=== PATIENT | male | born 1950 | race Caucasian/White ===

== ENCOUNTER → 2017-04-07 | Outpatient (CLI) | payer MEDICARE ==
[~2017-04-07] MED LIST: HYDR-3111 PO; HYDR-3583 PO; TEST1INJ3 IM; TYLE325T PO
[2017-04-07 10:21] LABS: AUTOMATED NEUTROPHIL # 3.5 TH/MM3 (1.8-7.7); BASOPHIL % 0.8 % (0.0-2.0); EOSINOPHIL # 0.1 TH/MM3 (0-0.4); HEMATOCRIT 45.9 % (39.0-51.0); HEMO FLAGS DIFF FINAL; LYMPH % 31.6 % (9.0-44.0); LYMPHOCYTE # 1.9 TH/MM3 (1.0-4.8); MEAN CELL VOLUME 89.3 FL (80.0-100.0); MEAN CORPUSCULAR HEMOGLOBIN 31.7 PG (27.0-34.0); MEAN CORPUSCULAR HGB CONC 35.4 % (32.0-36.0); MONO % 7.6 % (0.0-8.0); PLATELET COUNT 187 TH/MM3 (150-450); RED BLOOD COUNT 5.14 MIL/MM3 (4.50-5.90); RED CELL DISTRIBUTION WIDTH 12.6 % (11.6-17.2); WHITE BLOOD COUNT 6.1 TH/MM3 (4.0-11.0)
[2017-04-07 10:57] LABS: ANION GAP 8 MEQ/L (5-15); AST (GOT) 34 U/L (15-37); BICARBONATE 27.5 MEQ/L (21.0-32.0); BLOOD UREA NITROGEN 19 MG/DL (7-18); CHLORIDE 104 MEQ/L (98-107); GLOMERULAR FILTRATION RATE 86 ML/MIN (>89); GLUCOSE,FASTING 102 MG/DL (74-99); POTASSIUM 4.6 MEQ/L (3.5-5.1); SODIUM (NA) 139 MEQ/L (136-145)
[2017-04-07 10:58] LABS: ALT (GPT) 30 U/L (12-78)
[2017-04-07 11:00] LABS: ALKALINE PHOSPHATASE 81 U/L (45-117); TOTAL BILIRUBIN ADULT 0.6 MG/DL (0.2-1.0)
--- NOTE | 2017-04-07 11:32 | EKG ---
Date Performed: 04/07/2017 Time Performed: 10:06:50 PTAGE: 66 years EKG: NORMAL Sinus rhythm INFERIOR MYOCARDIAL INFARCTION, PROBABLY OLD LOW QRS VOLTAGE IN THE LIMB LEADS ABNORMAL ECG NO PREVIOUS TRACING DOCTOR: Ryland Portillo Interpretating Date/Time 04/07/2017 11:32:23
== END ==
LOC: CPRE 09:40
PROVIDERS: ATTEND Orthopaedic Surgery
DX: Z01.810 Encounter for preprocedural cardiovascular examination (principal); Z01.812 Encounter for preprocedural laboratory examination; M75.41 Impingement syndrome of right shoulder; M75.121 Complete rotator cuff tear or rupture of right shoulder, not specified as traumatic; R94.31 Abnormal electrocardiogram [ECG] [EKG]
CPT/HCPCS: 36415; 80053; 85025; 93005

== ENCOUNTER → 2017-04-30 | Day surgery (SDC) | payer MEDICARE ==
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
[~2017-04-30] VITALS: Ht 172.7 cm; Wt 102.1 kg
[~2017-04-30] MED LIST changes: +ACETAMINOPHEN/HYDROcodone 325 MG/5 MG TAB PO PRN; +BUPIVACAINE HCL PF 0.5% 30 ML VIAL ONE; +CHLORHEXIDINE GLUCONATE 2 % 1 PACK (2 CLOTHS) TOPICAL PRN; +DEXAMETHASONE SOD PHOS 4 MG/ML VIAL IV ONE; +DEXAMETHASONE SOD PHOS 4 MG/ML VIAL ONE; +DO NOT ADM ANY ANTICOAGULANT DRUGS PRN; +EPINEPHrine HCL (1:1000) 30 MG/30 ML VIAL ONE; +GLYCOPYRROLATE 1 MG/5 ML SYRINGE IV PUSH ONE; +LACTATED RINGER'S 1000 ML INJ 1,000 ML IV ONE; +LACTATED RINGER'S 1000 ML IV PRN; +LIDOCAINE HCL 1% PF 5 ML SYRINGE OTHER ONE; +METOPROLOL TARTRATE 25 MG TAB PO PRN; +MIDAZOLAM HCL 2 MG/2 ML VIAL IV ONE; +MORPHINE SULFATE 4 MG/ML INJ IV ONE; +MORPHINE SULFATE 4 MG/ML INJ IV PUSH PRN; +NEOSTIGMINE 3 MG/3 ML SYR IV ONE; +ONDANSETRON HCL 4 MG/2 ML VIAL IV PUSH ONE; +ONDANSETRON HCL 4 MG/2 ML VIAL IV PUSH PRN; +PHENYLEPH/NS 1000 MCG/10 ML SYR IV ONE; +POVIDONE IODINE 5% (ANTISEPSIS KIT) 4 APPLICATIONS EACH NARE PRN; +POVIDONE IODINE 7.5% SCRUB 118 ML BOTTLE TOPICAL SCH; +PROPOFOL 200 MG/20 ML AMP IV ONE; +ROCURONIUM INJ 50 MG/5 ML SYRINGE IV PUSH ONE; +SODIUM CHLOR 0.9% 1000 ML INJ 1,000 ML IV SCH; +SODIUM CHLORID 0.9% 500 ML IV PRN; +VANCOMYCIN 1500 MG/NS 500 ML (for 85-99 kg) IV SCH; +ceFAZolin 2 GM PREMIX 50 ML IV SCH; +ePHEDrine/NS 25 MG/5 ML SYR IV ONE
[2017-04-30 16:45] VITALS: BP 152/73; PULSE 92; RESP 18; TEMP 96.9; O2SAT 96
--- NOTE | 2017-04-30 21:36 | MP ---
cc: TRENTON PATEL DATE OF SURGERY: 04/30/2017 PREOPERATIVE DIAGNOSIS: 1. Full thickness rotator cuff tear, anterior portion of supinatus. 2. Biceps tendinopathy. 3. Partial tear, superior portion of subscapularis. POSTOPERATIVE DIAGNOSIS: 1. Full thickness rotator cuff tear, anterior portion of supinatus. 2. Biceps tendinopathy. 3. Partial tear, superior portion of subscapularis. OPERATIVE PROCEDURE 1. Arthroscopic surgery right shoulder consisting of the following: Debridement of the shoulder joint and biceps tenotomy. Acromioplasty. 2 Co-planing lateral and clavicle (modified Bettye procedure). 3. Open rotator cuff repair through a mini open technique. 4. Biceps tenodesis. SURGEON: Dr. Patel. ANESTHESIA: General. TECHNIQUE: After induction of anesthesia, great care was taken to position this patient in a lateral decubitus position. An axillary roll was placed, Charnley positioners were used to put him in a right lateral decubitus position, leaning towards the surgeon about 15-20 degrees. The left leg was padded underneath the leg crate. Both legs were properly cushioned and positioned. Head and neck properly positioned. The arm was then placed in traction with ten pound weight, using the Arthrex soft goods in the Accuflex positioner and about 30 degrees of abduction. Right shoulder girdle was then prepped with alcohol and ChloraPrep, draped in a routine fashion including Ioban drape around the arm. Bony prominences were marked. This man is very large in his upper body and it was difficult to palpate the bony prominences, but they were done and marked. A stab incision was made about 3 cm below and slightly posterior to the posterolateral aspect of the acromion and we were able to enter the joint with the first pass and inspect the joint. There was a lot of synovitis in the joint making visualization difficult. The subluxed biceps tendon also makes it difficult. There was a deep tear of the upper portion of the subscapularis but we were not planning to repair that. The biceps tendon had significant tendinopathy with inflammation at its attachment as well as superior labral tear as well as some vertical splitting of the tendon. Anterior portal established and using a shaver and basket forceps, the biceps tendon was released. Residual area of the superior labrum was trimmed. Joint was examined. The humeral head is satisfactory. Glenoid has some wear of the cartilage. The infraspinatus and teres minor are intact. There is a full-thickness rotator cuff tear at the anterior most portion of the supraspinatus. Once the joint surgery was completed a careful debridement of the joint was carried out. Once the joint surgery was completed, we went into the subacromial space through the same posterior portal. A mid lateral portal was established and instrumentation carried out from here. The patient has a tremendous amount of bursitis and care had to be taken to debride all this to visualize the rotator cuff tear. Acromioplasty was carried out all the way to the area of attachment to correct the coracoacromial ligament but we did not do any separate release of the ligament. AC joint was debrided. The undersurface of the lateral end of the clavicle was planed with a barrel bur. We then turned our attention to the rotator cuff. The cuff was delineated. The bone was debrided over the greater tuberosity where there was a big bump. The shoulder continued to swell and the visualization got more and more difficult even after we had put the anterior cannula in the subacromial space and a large plastic cannula in the mid lateral portal, indeed we were running out of room for the scope. With all these difficulties we decided to stop the arthroscopic procedure. The portals were closed with interrupted nylon sutures. Sterile towels were placed over it. Undraping was carried out and then the patient was placed in a beach chair position with folded blankets under his chest. Head and neck properly positioned and supported, lower legs placed on blankets and padding of the heels. Ioban drape was applied after proper preparation and draping. We prepped with ChloraPrep and draped in routine fashion. Ioban draped applied. Careful palpation localized the approximate location of the anterolateral corner of the acromion and an incision started there and extended distally about 6-7 cm. The deltoid was split for about 6 cm and bursa entered. A lot of the bursa had to be excised. We were able to visualize the rotator cuff and pull with a grasper. It was decided to pursue tenodesis, right through here rather than do subpectoral. The arm was externally rotated. Biceps groove sheath was incised and we were able to pull the biceps out which was quite robust, quite flat and big. A few millimeters of the tendon was sacrificed. A #2 FiberWire whip stitch was placed through the proximal 20 millimeters of the tendon. The site was prepared. The upper end of the groove and somewhat lateral to it to do the tenodesis, and an 8 millimeter socket was created after introducing the guide wire. An 8 millimeter SwiveLock anchor was then used to pull the biceps tendon into this hole and then use a screw to get fixation. The suture that was through the screw and the suture from outside were both tied together for additional security. We then proceeded to prepare the greater tuberosity, to repair the rotator cuff. A SwiveLock anchor was placed a few millimeters lateral to the articular surface under the rotator cuff and the two FiberWire sutures were passed through the rotator cuff about a centimeter from the tear. The two sutures from this SwiveLock anchor were also passed through the rotator cuff. A second anchor was then placed to create a double row fixation and again a SwiveLock anchor was used to complete double row fixation about 2 cm lateral to the first anchor, getting good fixation of the rotator cuff. The sutures from the biceps tendon were once again tied to the sutures from the lateral swivlock. All sutures were cut short. The wound was irrigated with saline solution followed by closure of the deltoid with 0 Vicryl, subcutaneous tissue with 2-0 Vicryl, skin with interrupted vertical mattress, 4-0 nylon sutures. The portals and the incisions were all dressed with Xeroform, 4x4s, ABD and Medipore tape. Ultra sling was applied. The patient transferred to the recovery room in satisfactory condition. The patient tolerated the procedure well. TRANSFUSIONS: None. COMPLICATIONS: None. POSTOPERATIVE CONDITION Satisfactory PROGNOSIS Guarded to good. MD TENZIN Chavez/SARAI /2:57 PM /9:05 PM LEVI
== END | disposition home or self-care (01) ==
LOC: HSDC 07:34 → EDUNIT# 13:00
PROVIDERS: ATTEND Orthopaedic Surgery
DX: M75.121 Complete rotator cuff tear or rupture of right shoulder, not specified as traumatic (principal); M75.41 Impingement syndrome of right shoulder; M75.21 Bicipital tendinitis, right shoulder; Z87.891 Personal history of nicotine dependence
CPT/HCPCS: 01630; 23412; 29824; 29828; C1713; J0171; J1100; J2250; J2270; J2370; J2405; J2710; J3010; J7120